=== PATIENT | female | born 1990 | race Caucasian/White ===

== ENCOUNTER 2021-03-18 10:47 | Outpatient (CLI) | payer BC ==
[~2021-03-18] VITALS: Ht 175.3 cm; Wt 127.3 kg
[2021-03-18 11:38] VITALS: BP 110/57
[2021-03-18] MEDS ORDERED: URSO300C27 PO (12:05)
[2021-03-18] MEDS ORDERED: LEVO300T2 PO (12:06)
[2021-03-18] MEDS ORDERED: DOCU-131 PO (12:07)
[2021-03-18] MEDS ORDERED: CHOL10003 PO (12:10)
[2021-03-18] MEDS ORDERED: PNV1TAB.5 PO (12:11)
== END 2021-03-18 16:12 | disposition home or self-care (01) ==
LOC: LDOP 10:47
PROVIDERS: ATTEND Obstetrics & Gynecology
DX: O26.893 Other specified pregnancy related conditions, third trimester (principal); Z3A.35 35 weeks gestation of pregnancy
CPT/HCPCS: 59025; 76819

== ENCOUNTER 2021-03-19 09:57 | Outpatient (CLI) | payer BC ==
[~2021-03-19] VITALS: Ht 175.3 cm; Wt 127.2 kg
[~2021-03-19 09:57] MED LIST: CHOL10003 PO; DOCU-131 PO; LEVO300T2 PO; PNV1TAB.5 PO; URSO300C27 PO
== END 2021-03-19 11:23 | disposition home or self-care (01) ==
LOC: LDOP 09:57
PROVIDERS: ATTEND Obstetrics & Gynecology
DX: O26.893 Other specified pregnancy related conditions, third trimester (principal); Z3A.35 35 weeks gestation of pregnancy
CPT/HCPCS: 59025; 76819

== ENCOUNTER 2021-03-22 16:31 | Outpatient (CLI) | payer BC ==
[~2021-03-22] VITALS: Ht 175.3 cm; Wt 128.2 kg
[2021-03-22 16:41] VITALS: BP 119/67
== END 2021-03-22 17:37 | disposition home or self-care (01) ==
LOC: LDOP 16:31
PROVIDERS: ATTEND Obstetrics & Gynecology
DX: Z34.93 Encounter for supervision of normal pregnancy, unspecified, third trimester (principal); Z3A.36 36 weeks gestation of pregnancy
CPT/HCPCS: 59025

== ENCOUNTER 2021-03-28 06:24 | Inpatient (IN) | payer BC ==
[~2021-03-28] VITALS: Ht 175.3 cm; Wt 127.3 kg
[~2021-03-28 06:24] MED LIST changes: +AMPICILLIN 2 GM in SODIUM CHLORIDE 0.9% 100 ML IVPB ONE
[2021-03-28] MEDS ORDERED: OXYTOCIN 30U/ 0.9% NaCL 500ML 500 ML IV PRN (06:30)
[2021-03-28] MEDS ORDERED: TERBUTALINE 1 MG/ML, 1ML SQ PRN (06:30)
[2021-03-28] MEDS ORDERED: FENTANYL PF 100 MCG/2ML IV PRN (06:30)
[2021-03-28] MEDS ORDERED: OXYTOCIN 30U/ 0.9% NaCL 500ML 500 ML IV ONE (06:30)
[2021-03-28] MEDS ORDERED: ONDANSETRON 2MG/ML, 2ML IVPush PRN ×2 (06:30→20:30)
[2021-03-28] MEDS ORDERED: CALCIUM CARBONATE 500 MG TAB.CHEW PO PRN (06:30)
[2021-03-28] MEDS ORDERED: MISOPROSTOL 25 MCG TABLET VG PRN (06:30)
[2021-03-28] MEDS ORDERED: METOCLOPRAMIDE 5 MG/ML, 2ML IVPush PRN (06:30)
[2021-03-28] MEDS ORDERED: TERBUTALINE 1 MG/ML, 1ML IVPush PRN (06:30)
[2021-03-28] MEDS ORDERED: FENTANYL PF 100 MCG/2ML IVPush PRN (06:30)
[2021-03-28] MEDS ORDERED: SODIUM CITRATE/CITRIC ACID 30 ML UDC PO PRN (06:30)
[2021-03-28] MEDS ORDERED: D5%-LACTATED RINGERS 1,000 ML IV SCH (06:30)
[2021-03-28 06:48] LABS: BASOPHILS % (AUTO) 0 % (0-1); EOSINOPHILS % (AUTO) 3 % (1-7); LYMPHOCYTES % (AUTO) 18 % (22-44); MEAN CORPUSCULAR HEMOGLOBIN 28.6 pg (27.0-34.8); MEAN CORPUSCULAR HGB CONC 34.1 g/dL (32.4-35.8); MEAN PLATELET VOLUME 8.7 fL (7.4-10.4); MONOCYTES % (AUTO) 8 % (2-9); NEUTROPHILS % (AUTO) 71 % (42-75); PLATELET COUNT 216 x10^3/uL (130-400); RED BLOOD COUNT 4.11 x10^6/uL (3.82-5.3); RED CELL DISTRIBUTION WIDTH 13.9 % (9.6-15.2)
[2021-03-28] MEDS ORDERED: PLEASE ENTER HEIGHT AND WEIGHT MC SCH (07:00)
[2021-03-28] MEDS ORDERED: NEWBORN KIT ONE (08:17)
[2021-03-28] MEDS: LACTATED RINGERS 1,000 ML IV SCH ×2 (08:31→16:39)
[2021-03-28 09:30] VITALS: BP 128/74
[2021-03-28] MEDS: AMPICILLIN 1 GM in SODIUM CHLORIDE 0.9% 100 ML IVPB SCH ×3 (12:24→20:22)
[2021-03-28] MEDS ORDERED: FENTANYL PF 500 MCG, BUPIVACAINE/PF 0.5%, 30ML 62.5 ML in SODIUM CHLORIDE 0.9% 177.5 ML EPIDCONT SCH ×2 (18:30→20:30)
[2021-03-28] MEDS ORDERED: FENTANYL/BUPIV./NS/PF 250 ML EPIDCONT SCH (18:30)
[2021-03-28] MEDS ORDERED: BUPIVACAINE 0.25% ONE (18:38)
[2021-03-28] MEDS ORDERED: MISOPROSTOL 200 MCG TABLET ONE (20:17)
[2021-03-28] MEDS ORDERED: LIDOCAINE 1%, 20ML ONE (20:17)
[2021-03-28] MEDS ORDERED: DIPHENHYDRAMINE 50 MG/ML, 1ML IVPush PRN (20:30)
[2021-03-28] MEDS ORDERED: NALOXONE 0.4 MG/ML, 1ML IVPush PRN (20:30)
[2021-03-28] MEDS ORDERED: LACTATED RINGERS 1,000 ML IVBOLUS PRN (20:30)
[2021-03-28] MEDS ORDERED: EPHEDRINE 50 MG/ML, 1ML IVPush PRN (20:30)
[2021-03-28] MEDS ORDERED: LACTATED RINGERS 1,000 ML IV SCH (20:30)
[2021-03-28] MEDS: URSODIOL 300 MG CAPSULE PO SCH (20:56)
[2021-03-28] MEDS ORDERED: ONDANSETRON 2MG/ML, 2ML IV PRN (23:30)
[2021-03-28] MEDS ORDERED: MISOPROSTOL 200 MCG TABLET PR PRN (23:30)
[2021-03-28] MEDS ORDERED: HYDROcodone/APAP 5/325 TABLET PO PRN ×2 (23:30)
[2021-03-28] MEDS ORDERED: METHYLERGONOVINE 0.2 MG/ML IM PRN (23:30)
[2021-03-28] MEDS ORDERED: OXYTOCIN 10 UNITS/ML, 1ML IM PRN (23:30)
[2021-03-28] MEDS ORDERED: ACETAMINOPHEN 325 MG TABLET PO PRN (23:30)
[2021-03-28] MEDS ORDERED: SIMETHICONE 80 MG CHEW TAB PO PRN (23:30)
[2021-03-28] MEDS ORDERED: CARBOPROST TROMETHAMINE 250 MCG/ML, 1ML IM PRN (23:30)
[2021-03-29] MEDS: OXYTOCIN 30U/ 0.9% NaCL 500ML 500 ML IV SCH ×3 (00:13→19:37)
[2021-03-29 02:15] VITALS: BP 123/81
[2021-03-29] MEDS ORDERED: CALCIUM CARBONATE 500 MG TAB.CHEW PO PRN (02:30)
[2021-03-29] MEDS: IBUPROFEN 600 MG TABLET PO PRN ×3 (04:46→19:51)
[2021-03-29 05:00] VITALS: BP 122/84
[2021-03-29 07:09] LABS: BASOPHILS % (AUTO) 0 % (0-1); EOSINOPHILS % (AUTO) 1 % (1-7); LYMPHOCYTES % (AUTO) 11 % (22-44); MEAN CORPUSCULAR HGB CONC 33.5 g/dL (32.4-35.8); MEAN PLATELET VOLUME 8.6 fL (7.4-10.4); MONOCYTES % (AUTO) 4 % (2-9); NEUTROPHILS % (AUTO) 84 % (42-75); PLATELET COUNT 205 x10^3/uL (130-400); RED BLOOD COUNT 4.29 x10^6/uL (3.82-5.3); RED CELL DISTRIBUTION WIDTH 14.3 % (9.6-15.2)
[2021-03-29 08:17] VITALS: BP 124/83
[2021-03-29] MEDS: URSODIOL 300 MG CAPSULE PO SCH ×3 (09:16→19:51)
[2021-03-29] MEDS: PRENATAL VIT/IRON/FA 1 EACH TABLET PO SCH (09:16)
[2021-03-29] MEDS: DOCUSATE 100 MG CAPSULE PO PRN ×2 (09:16→19:51)
[2021-03-29 12:15] VITALS: BP 104/72
[2021-03-29 16:45] VITALS: BP 104/69
[2021-03-29 19:30] VITALS: BP 118/82
[2021-03-30] MEDS: IBUPROFEN 600 MG TABLET PO PRN ×2 (02:31→09:37)
[2021-03-30] MEDS: OXYTOCIN 30U/ 0.9% NaCL 500ML 500 ML IV SCH (04:39)
[2021-03-30 07:56] VITALS: BP 117/84
[2021-03-30] MEDS: PRENATAL VIT/IRON/FA 1 EACH TABLET PO SCH (09:00)
[2021-03-30] MEDS: URSODIOL 300 MG CAPSULE PO SCH (09:36)
[2021-03-30] MEDS: DOCUSATE 100 MG CAPSULE PO PRN (09:36)
[2021-03-30] MEDS ORDERED: IBUP-1222 PO (13:24)
[2021-03-30] MEDS ORDERED: DOCU-131 PO (13:24)
== END 2021-03-30 14:01 | disposition home or self-care (01) | DRG 805 ==
LOC: LDIP 06:24 → 2NE 03-29 02:12 → 2NW 03-29 06:37
PROVIDERS: ADMIT Obstetrics & Gynecology; ATTEND Obstetrics & Gynecology
PROC: 10E0XZZ Delivery of Products of Conception, External Approach (ICD-10-PCS; principal; 2021-03-28)
PROC: 0HQ9XZZ Repair Perineum Skin, External Approach (ICD-10-PCS; 2021-03-28)
PROC: 3E033VJ Introduction of Other Hormone into Peripheral Vein, Percutaneous Approach (ICD-10-PCS; 2021-03-28)
PROC: 3E0DXGC Introduction of Other Therapeutic Substance into Mouth and Pharynx, External Approach (ICD-10-PCS; 2021-03-28)
DX: O26.62 Liver and biliary tract disorders in childbirth (principal); K83.1 Obstruction of bile duct; Z37.0 Single live birth; O99.824 Streptococcus B carrier state complicating childbirth; Z20.822 Contact with and (suspected) exposure to COVID-19; Z3A.37 37 weeks gestation of pregnancy; O99.214 Obesity complicating childbirth; O99.284 Endocrine, nutritional and metabolic diseases complicating childbirth; E03.9 Hypothyroidism, unspecified; O70.0 First degree perineal laceration during delivery
CPT/HCPCS: 36415; 85025; 86592; 86850; 86900; 87635; G0378; J0290; J2590; J3010; J7120